=== PATIENT | male | born 1960 | race Caucasian/White ===

== ENCOUNTER 2020-09-15 15:29 | Emergency (ER) | payer BC ==
[~2020-09-15] VITALS: Ht 170.2 cm; Wt 117.9 kg
[~2020-09-15 15:29] MED LIST: ASPIRIN EC325 MG PO; METFORMIN HCL500 MG PO; METOPROLOL TART25 MG PO; OMEPRAZOLE20 MG PO; PERCOCET 5-3251 EACH PO; SYNTHROID125 MCG PO
--- NOTE | 2020-09-15 18:34 | EKG ---
[facility] [address] [facility] [place] [address] Signed Supraventricular tachycardia Nonspecific ST and T wave abnormality Abnormal ECG When compared with ECG of 02-MAY-2017 08:20, Vent. rate has increased BY [address] now depressed in Anterior leads Confirmed by AMAURY PEDERSON MD ([id number]) on 09/15/2020 6:34:11 PM Electronically Signed By: AMAURY PEDERSON MD 09/15/20 1834 PATIENT NAME: STERLING CYR ITA Electrocardiogram DATE OF : 56 PHYSICIAN: AMAURY PEDERSON MD REPORT #: [id number] REPORT IS CONFIDENTIAL AND NOT TO BE RELEASED WITHOUT AUTHORIZATION
== END 2020-09-15 18:58 | disposition home or self-care (01) ==
LOC: ED 15:29
DX: I47.1 Supraventricular tachycardia (principal); I10 Essential (primary) hypertension; E03.9 Hypothyroidism, unspecified; Z88.0 Allergy status to penicillin; Z88.5 Allergy status to narcotic agent; Z79.899 Other long term (current) drug therapy; Z79.84 Long term (current) use of oral hypoglycemic drugs; Z79.82 Long term (current) use of aspirin
CPT/HCPCS: 71045; 80053; 84484; 85025; 93005; 93010; 96374; 99285-25; J0153; J7030

== ENCOUNTER 2022-03-13 11:47 | Day surgery (SDC) | payer OTHER ==
[~2022-03-13] VITALS: Ht 170.2 cm; Wt 101.4 kg
[~2022-03-13 11:47] MED LIST changes: +ELIQUIS5 MG PO; +FLOMAX0.4 MG PO; +GLIPIZIDE ER10 MG PO; +HYDROCHLOROTHIA25 MG PO; +OZEMPIC1 MG/0.71 SUB-Q; +TELMISARTAN80 MG PO
--- NOTE | 2022-03-13 14:48 | NUR ---
03/13/22 Esteban6 Tamela Watt 3535-PATIENT ARRIVED TO PACU ON 2L NC RR EVEN. PATIENT AWAKE LAYING LEFT LATERAL ABDOMEN SOFT. IVF INFUSING. PATIENT DOZES BACK TO SLEEP
--- NOTE | 2022-03-14 16:53 | OR ---
[facility] [address] [place], [place] [address] Signed DATE OF OPERATION: 03/13/2022 SURGEON: Rusty Rodriguez MD PREOPERATIVE DIAGNOSES: 1. History of polyps. 2. Multiple medical problems (atrial fibrillation with anticoagulation, diabetes mellitus). POSTOPERATIVE DIAGNOSES: 1. Sigmoid diverticulosis. 2. Sessile polyp at 60 cm (excised). PROCEDURE: Total colonoscopy to cecum with cold snare polypectomy x1. ANESTHESIA: Intravenous sedation, fentanyl 100 mcg and Versed 6 mg. INDICATION: This 61-year-old white man is a patient of Dr. Eugenia Mayer. He is known to me from the past. He last underwent colonoscopy by Dr. Bryan Nagel and may have had one polyp he thinks. He has no symptoms currently of bleeding, diarrhea, or constipation and has no family history of colon cancer. He has numerous medical problems including diabetes mellitus, paroxysmal atrial fibrillation, treatment with anticoagulant Eliquis as well as hypertension and sleep apnea. He is admitted at this time to undergo colonoscopy for surveillance. He understands the risks of bleeding, infection, and perforation. FINDINGS: The prep was good. Complete colonoscopy was undertaken to the cecum without question. He had scattered diverticulitis throughout the sigmoid and left colon. There was a sessile polyp at about 60 cm that was excised with cold snare polypectomy technique. There were no other findings of concern. DESCRIPTION OF PROCEDURE: The patient was brought to the endoscopy suite, placed in lateral decubitus position and given intravenous sedation to the point of slurred speech and nystagmus with full cardiopulmonary monitoring. Digital rectal examination was normal. An Olympus video colonoscope was passed in the rectum and manipulated throughout the Electronically Signed By: RUSTY RODRIGUEZ MD 03/14/22 2912 PATIENT NAME: STERLING CYR OPERATIVE REPORT DATE OF : 56 REPORT #: [id number] PHYSICIAN: RUSTY RODRIGUEZ MD PCP: EUGENIA MAYER MD REPORT IS CONFIDENTIAL AND NOT TO BE RELEASED WITHOUT AUTHORIZATION [facility] [address] [place], [place] [address] Signed colon noting diverticula of the sigmoid and left colon. The scope was ultimately advanced to the cecum. The ileocecal valve and appendiceal orifice were normal. Entry into the ileum showed normal ileal mucosa as well. The scope was withdrawn and examination throughout showed no sign of abnormality until approximately 60 cm from the anal verge, where a somewhat sessile polyp was noted and this was excised with cold snare technique. There was no untoward bleeding. The scope was withdrawn further demonstrated once again sigmoid diverticulosis. The rectum was normal. The scope was removed and the patient was taken to the recovery room in good condition. CONCLUDING DIAGNOSES: 1. Polyp at 60 cm (excised). 2. Diverticulosis, sigmoid and left colon. PLAN: Recommend repeat colonoscopy in 5 years or sooner if clinically indicated. He will return to the ongoing care of Dr. Eugenia Mayer otherwise. MD KAVITA Johns/JOSÉ MIGUEL /[id number] cc: Eugenia Mayer MD Copies: EUGENIA MAYER MD ~ Electronically Signed By: RUSTY RODRIGUEZ MD 03/14/22 1653 PATIENT NAME: STERLING CYR [place] OPERATIVE REPORT DATE OF : 56 REPORT #: [id number] PHYSICIAN: RUSTY RODRIGUEZ MD PCP: EUGENIA MAYER MD REPORT IS CONFIDENTIAL AND NOT TO BE RELEASED WITHOUT AUTHORIZATION
== END 2022-03-13 15:25 | disposition home or self-care (01) ==
LOC: OPS 11:47 → DS 11:51 → OPS 13:00 → DS 13:00 → OPS 15:25
PROVIDERS: ATTEND Surgery
PROC: 0DBE8ZX Excision of Large Intestine, Via Natural or Artificial Opening Endoscopic, Diagnostic (ICD-10-PCS; principal; 2022-03-13 13:00)
DX: Z12.11 Encounter for screening for malignant neoplasm of colon (principal); K63.5 Polyp of colon; K57.32 Diverticulitis of large intestine without perforation or abscess without bleeding; I10 Essential (primary) hypertension; E11.9 Type 2 diabetes mellitus without complications; I48.0 Paroxysmal atrial fibrillation; I48.20 Chronic atrial fibrillation, unspecified; Z86.16 Personal history of COVID-19; Z88.6 Allergy status to analgesic agent; Z88.5 Allergy status to narcotic agent; Z88.0 Allergy status to penicillin; Z88.8 Allergy status to other drugs, medicaments and biological substances; Z79.899 Other long term (current) drug therapy; Z79.01 Long term (current) use of anticoagulants; Z79.84 Long term (current) use of oral hypoglycemic drugs; Z79.890 Hormone replacement therapy
CPT/HCPCS: 99153; G0500; J2250; J3010; J7121

== ENCOUNTER 2023-04-10 07:11 | Observation (INO) | payer OTHER ==
[2023-04-10] VITALS (9 sets, daily range): BP systolic 106–125; BP diastolic 56–95
[~2023-04-10] VITALS: Ht 170.2 cm; Wt 99.1 kg
[2023-04-10] MEDS ORDERED: SIMVASTATIN10 MG PO (07:22)
[2023-04-10 07:37] LABS: BASOPHILS 1.9 % (0-2); EOSINOPHILS 3.1 % (0-6); HEMATOCRIT 44.6 % (35.0-50.0); LYMPHOCYTES 22.6 % (24-44); MCH 31.2 (27-36); MCHC 33.7 g/dl (30-36); MCV 92.6 fl (81-99); MONOCYTES 6.9 % (0-12); NEUTROPHILS 65.5 % (39-80); PLATELET COUNT 224 K/uL (140-440); RBC 4.81 M/ul (4.3-5.7); RDW 13.2 (10.5-15.0)
[2023-04-10 07:52] LABS: ALBUMIN 3.6 g/dL (3.4-5.0); ALBUMIN/GLOBULIN RATIO 1.03 (1.1-2.4); ANION GAP 15.4 (7-21); BILIRUBIN, TOTAL 0.5 ng/dL (0.2-1.0); BUN/CREATININE RATIO 13.08 (6.0-28.6); CALCIUM 8.5 mg/dL (8.5-10.1); CREATININE, SERUM 1.07 mg/dL (0.70-1.30); MAGNESIUM 1.6 mg/dL (1.8-2.4); POTASSIUM 4.4 mmol/L (3.5-5.1); PROTEIN, TOTAL 7.1 g/dL (6.4-8.2)
--- NOTE | 2023-04-10 12:52 | NUR ---
PATIENT ADMITTED TO CCU ROOM 128 FOR AFIB W/RVR. ON ARRIVAL, PATIENT IN NORMAL SINUS RHYTHM, RATES IN THE 70-80s. PT ABLE TO AMBULATE INTO BATHROOM TO VOID PRIOR TO GETTING INTO BED. PT'S NICOLE WITH PATIENT ON ARRIVAL, BUT LEAVES SHORTLY AFTER SO SHE CAN GO TO WORK. PT ON DILT GTT AT 2.5 MG/HR UPON ARRIVAL. DISCUSSED WITH PATIENT THE PLAN FOR THE DAY. PT DENIES CHEST PAIN, SHORTNESS OF BREATH, OR ANY PALPITATIONS. PT ORIENTED TO ROOM AND CALL LIGHT USE. PT RESTING, WATCHING TV. CBG AT 1200 WAS 168 AND SS INSULIN GIVEN.
[2023-04-10] MEDS ORDERED: METOPROLOL TAR100 MG PO (13:31)
[2023-04-10] MEDS ORDERED: METFORMIN HCL500 M1 PO (13:34)
[2023-04-10] MEDS ORDERED: LEVOTHYROXINE137 MCG PO (13:35)
--- NOTE | 2023-04-10 13:55 | NUR ---
TRIM SAWYER IN ROOM AND PERFORMING ECHO. PT REMAINS IN SINUS RHYTHM 70s AT THIS TIME.
--- NOTE | 2023-04-10 14:14 | NUR ---
UR NOTE [facility] ATRIAL FIBRILLATION: OBSERVATION CARE (ISC) 04/10/23 MET OBSERVATION CARE ADMISSION CRITERIA
[2023-04-10] MEDS ORDERED: TAMSULOSIN HCL0.4 MG PO (15:16)
--- NOTE | 2023-04-10 16:21 | NUR ---
DILT GTT TURNED OFF AT 1545. PT HAS REMAINED IN NSR WITH RATES IN THE 70-80s WHILE RESTING. PT DENIES PAIN OF ANY SORT AT THIS TIME, OTHER THAN HIS IV IN LEFT AC WHICH WAS D/C PER HIS REQUEST. PT STILL HAS 18 G IN RIGHT AC. PT NOTED TO HAVE FREQ PACs ON MONITOR. WILL CONTINUE TO MONITOR.
--- NOTE | 2023-04-10 21:33 | NUR ---
PATIENT PROVIDED SCHEDULED MEDS AND INSULIN COVERAGE FOR BLOOD SUGAR PER ORDER. PATIENT IN BED WATCHING TV. REPORTS FEELING WELL. VS STABLE. HR 70'S; SINUS ARRHYTHMIA. ADEQUATE BP. TOLERATING ROOM AIR. LUNG SOUNDS ARE CLEAR. PATIENT DENIED ANY CONCERNS. IV SITE WL, WNL. CALL LIGHT IN REACH. PATIENT UNDERSTANDS NEED TO CALL TO GET UP TO THE BATHROOM FOR CORD/MONITOR MANAGEMENT.
--- NOTE | 2023-04-10 21:43 | EKG ---
[facility] [address] [place] [address] Signed Sinus rhythm with premature atrial complexes Minimal voltage criteria for LVH, may be normal variant ( R in aVL ) Borderline ECG When compared with ECG of 15-SEP-2020 15:37, premature atrial complexes are now present Vent. rate has decreased BY [address] no longer depressed in Anterior leads T wave inversion less evident in Inferior leads Confirmed by Neela Almeida MD () on 04/10/2023 9:43:30 PM Electronically Signed By: NEELA ALMEIDA MD 04/10/232142 PATIENT NAME: STERLING CYR Electrocardiogram DATE OF : 56 PHYSICIAN: NEELA ALMEIDA MD REPORT #: [id number] REPORT IS CONFIDENTIAL AND NOT TO BE RELEASED WITHOUT AUTHORIZATION
--- NOTE | 2023-04-10 21:44 | EKG ---
[facility] [address] [facility] [place] [address] Signed Atrial fibrillation with rapid ventricular response Abnormal ECG When compared with ECG of 10-APR-2023 07:29, Atrial fibrillation has replaced Sinus rhythm Confirmed by Neela Almeida MD () on 04/10/2023 9:44:16 PM Electronically Signed By: NEELA ALMEIDA MD 04/10/23 2144 PATIENT NAME: STERLING CYR ITA Electrocardiogram DATE OF : 56 PHYSICIAN: NEELA ALMEIDA MD REPORT #: [id number] REPORT IS CONFIDENTIAL AND NOT TO BE RELEASED WITHOUT AUTHORIZATION
[2023-04-11] VITALS: BP 97/58
--- NOTE | 2023-04-11 00:10 | NUR ---
PATIENT APPEARS TO BE RESTING COMFORTABLY. VS STABLE. HR 70'S; SINUS. CALL LIGHT IN REACH.
[2023-04-11 02:00] VITALS: BP 102/69
--- NOTE | 2023-04-11 02:15 | NUR ---
PATIENT APPEARS TO BE RESTING COMFORTABLY. EYES CLOSED. VS STABLE. HR 70-80 AT REST. CALL LIGHT IN REACH.
[2023-04-11 04:00] VITALS: BP 106/64
--- NOTE | 2023-04-11 05:00 | NUR ---
PATIENT UP TO THE BATHROOM INDEPENDENTLY. PATIENT IS STEADY ON HIS FEET. DENIED SOB OR DIZZINESS. HR CONTROLED IN 70-80'S.
[2023-04-11 05:27] LABS: EOSINOPHILS 3.2 % (0-6); HEMOGLOBIN 14.6 g/dL (12.0-18.0); LYMPHOCYTES 35.5 % (24-44); MCH 31.3 (27-36); MCV 92.1 fl (81-99); MONOCYTES 7.3 % (0-12); PLATELET COUNT 193 K/uL (140-440); RBC 4.67 M/ul (4.3-5.7); RDW 13.2 (10.5-15.0)
[2023-04-11 05:52] LABS: ALBUMIN 3.4 g/dL (3.4-5.0); ALBUMIN/GLOBULIN RATIO 1.03 (1.1-2.4); ANION GAP 12.9 (7-21); BILIRUBIN, TOTAL 0.8 ng/dL (0.2-1.0); BUN/CREATININE RATIO 18.18 (6.0-28.6); CALCIUM 8.5 mg/dL (8.5-10.1); CREATININE, SERUM 0.88 mg/dL (0.70-1.30); MAGNESIUM 1.8 mg/dL (1.8-2.4); PHOSPHORUS, INORGANIC 3.2 mg/dL (2.5-4.9); POTASSIUM 3.9 mmol/L (3.5-5.1); PROTEIN, TOTAL 6.7 g/dL (6.4-8.2); TSH, 3RD GENERATION 1.244 uIU/mL (0.358-3.740)
--- NOTE | 2023-04-11 07:15 | NUR ---
report from lieutenant shift supervisor, pt resting eyes closed, call light in reach. hr 75.
[2023-04-11 08:00] VITALS: BP 12/79
--- NOTE | 2023-04-11 09:40 | NUR ---
dr hahn in with pt.
[2023-04-11] MEDS ORDERED: DILTIAZEM 24HR120 MG PO (10:22)
--- NOTE | 2023-04-11 10:30 | NUR ---
Spoke with pt and he lives in a home with 18 step with his Chelsy. He denies any needs. 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 He plans on dc to home. NO financial issues. He plans on dc to home today. will pick him up,
[2023-04-11 11:22] VITALS: BP 157/99
== END 2023-04-11 11:40 | disposition home or self-care (01) ==
LOC: ED 07:11 → CCU 07:12
PROVIDERS: Emergency Medicine; ADMIT Family Medicine; ATTEND Family Medicine
DX: I48.0 Paroxysmal atrial fibrillation (principal); E83.42 Hypomagnesemia; E11.9 Type 2 diabetes mellitus without complications; E03.9 Hypothyroidism, unspecified; I10 Essential (primary) hypertension; Z79.01 Long term (current) use of anticoagulants; Z88.5 Allergy status to narcotic agent; Z88.0 Allergy status to penicillin; Z88.8 Allergy status to other drugs, medicaments and biological substances; Z88.6 Allergy status to analgesic agent; Z79.84 Long term (current) use of oral hypoglycemic drugs; Z79.890 Hormone replacement therapy; Z79.899 Other long term (current) drug therapy
CPT/HCPCS: 36415; 71045; 80053; 83735; 84100; 84443; 84484; 85025; 93005; 93010; 93306; 99285-25; G0378; J1815; J3475; J3490

== ENCOUNTER 2023-10-18 09:15 | Emergency (ER) | payer OTHER ==
[~2023-10-18] VITALS: Ht 170.2 cm; Wt 100.5 kg
[~2023-10-18 09:15] MED LIST changes: +DILTIAZEM 24HR120 MG PO; +LEVOTHYROXINE137 MCG PO; +METFORMIN HCL500 M1 PO; +METOPROLOL TAR100 MG PO; +SIMVASTATIN10 MG PO; +TAMSULOSIN HCL0.4 MG PO
[2023-10-18] MEDS ORDERED: SOTALOL80 MG PO (09:43)
[2023-10-18] MEDS ORDERED: SLOW-MAG71.5 MG PO (09:43)
[2023-10-18 09:47] LABS: BASOPHILS 0.9 % (0-2); EOSINOPHILS 3.3 % (0-6); HEMATOCRIT 43.9 % (35.0-50.0); HEMOGLOBIN 14.9 g/dL (12.0-18.0); MCH 31.5 (27-36); MCV 92.8 fl (81-99); MONOCYTES 6.4 % (0-12); NEUTROPHILS 61.4 % (39-80); PLATELET COUNT 225 K/uL (140-440); RBC 4.73 M/ul (4.3-5.7); RDW 13.3 (10.5-15.0)
[2023-10-18 10:00] LABS: ALBUMIN 3.8 g/dL (3.4-5.0); ALBUMIN/GLOBULIN RATIO 1.12 (1.1-2.4); ANION GAP 14.2 (7-21); BILIRUBIN, TOTAL 0.5 ng/dL (0.2-1.0); BUN/CREATININE RATIO 18.18 (6.0-28.6); CALCIUM 8.6 mg/dL (8.5-10.1); CREATININE, SERUM 0.88 mg/dL (0.70-1.30); MAGNESIUM 1.6 mg/dL (1.8-2.4); POTASSIUM 4.2 mmol/L (3.5-5.1); PROTEIN, TOTAL 7.2 g/dL (6.4-8.2)
[2023-10-18] MEDS ORDERED: MAGNESIUM OXIDE 400 MG TABLET PO ONE (11:45)
[2023-10-18 11:55] VITALS: BP 111/91
--- NOTE | 2023-10-18 19:30 | EKG ---
[facility] [address] [facility] [place], [place] [address] Signed Sinus rhythm with premature atrial complexes Otherwise normal ECG Confirmed by MICHELLE KUMAR MD ([id number]) on 10/18/2023 7:30:26 PM Electronically Signed By: MICHELLE KUMAR 10/18/23 1930 PATIENT NAME: STERLING CYR ITA Electrocardiogram DATE OF : 56 PHYSICIAN: MICHELLE KUMAR REPORT #: [id number] REPORT IS CONFIDENTIAL AND NOT TO BE RELEASED WITHOUT AUTHORIZATION
== END 2023-10-18 11:55 | disposition home or self-care (01) ==
LOC: ED 09:15
PROVIDERS: Emergency Medicine
DX: I48.0 Paroxysmal atrial fibrillation (principal); I10 Essential (primary) hypertension; R73.03 Prediabetes; E03.9 Hypothyroidism, unspecified; Z79.01 Long term (current) use of anticoagulants; Z79.84 Long term (current) use of oral hypoglycemic drugs; Z79.890 Hormone replacement therapy; Z79.899 Other long term (current) drug therapy; Z88.5 Allergy status to narcotic agent; Z88.6 Allergy status to analgesic agent; Z88.8 Allergy status to other drugs, medicaments and biological substances
CPT/HCPCS: 36415; 71045; 80053; 83735; 84484; 85025; 93005; 93010; 99285-25